=== PATIENT | female | born 1970 | race Caucasian/White ===

== ENCOUNTER → 2021-05-21 | Day surgery (SDC) | payer MEDICARE, OTHER ==
[~2021-05-21] VITALS: Ht 157.5 cm; Wt 70.3 kg
[~2021-05-21] MED LIST: AJOVY225 MG/1.5 IM; ASPIRIN CHEWABL81 MG PO; BUSPAR5 MG PO; CYMBALTA 30MG C30 MG PO; DULOXETINE HCL60 MG PO; ELAVIL50 MG PO; FENOFIBRATE145 MG PO; GABAPENTIN300 MG PO; HCTZ12.5 MG PO; HYDROCODON-ACE1 EAC2 PO; IBANDRONATE SO150 MG PO; K-DUR20 MEQ PO; LIPITOR80 MG PO; LOVAZA1 GM PO; MELOXICAM15 MG PO; NIACIN ER500 MG PO; OMEPRAZOLE 20MG20 MG PO; PERCOCET 7.5/321 TAB PO; SINGULAIR10 MG PO; SUMATRIPTAN SU100 MG PO; SYNTHROID50 MCG PO; TIZANIDINE HCL4 MG PO; WELLBUTRIN SR150 MG PO; ZYRTEC10 MG PO
[2021-05-21 13:55] LABS: HCT 40.6 % (37.0-47.0); HGB 13.5 g/dl (12.5-16.0); MCH 29.2 pg (25.0-31.0); MCHC 33.3 g/dL (32.0-36.0); MCV 87.9 fL (78.0-100.0); MPV 10.6 fL (6.0-9.5); RBC 4.62 M/uL (4.20-5.40); RDW 12.8 % (11.5-14.0); WBC 6.7 K/uL (4.0-10.5)
[2021-05-21 14:19] LABS: BUN/CREAT RATIO (CALC) 23.5 RATIO; CREATININE 0.81 mg/dL (0.51-0.95); POTASSIUM 3.8 mmol/L (3.5-5.1)
== END | disposition home or self-care (01) ==
LOC: FAS 11:30
PROVIDERS: Legal Medicine
DX: M75.122 Complete rotator cuff tear or rupture of left shoulder, not specified as traumatic (principal); M19.011 Primary osteoarthritis, right shoulder; M75.41 Impingement syndrome of right shoulder; G89.18 Other acute postprocedural pain; Z90.721 Acquired absence of ovaries, unilateral; Z90.710 Acquired absence of both cervix and uterus; Z90.49 Acquired absence of other specified parts of digestive tract; Z91.041 Radiographic dye allergy status; Z88.5 Allergy status to narcotic agent; Z88.8 Allergy status to other drugs, medicaments and biological substances; Z91.013 Allergy to seafood; Z79.899 Other long term (current) drug therapy
CPT/HCPCS: 36415; 80048; 93005; C1713; J0171; J0690; J2250; J2405; J2550; J2704; J2710; J2795; J3010; J7120